=== PATIENT | female | born 2000 | race American Indian/Alaskan Native ===

== ENCOUNTER 2022-09-30 06:59 | Day surgery (SDC) | payer MEDICAID ==
[2022-09-30] MEDS ORDERED: Acetaminophen 500 MG Tab PO ONE (07:15)
[2022-09-30 07:41] LABS: ESTIMATED GFR 83 mL/min (>60)
[2022-09-30] MEDS ORDERED: Dextrose 5%-Lactated Ringers 1,000 ML IV SCH (08:00)
[2022-09-30] MEDS ORDERED: Levofloxacin/Dextrose 5%-Water 500 MG in Premix Bag 1 BAG IV ONE (08:30)
[2022-09-30] MEDS ORDERED: Indocyanine Green 25 MG SDV INJECT ONE (08:45)
[2022-09-30] MEDS ORDERED: Ketamine 16 MG in Sodium Chloride 0.9% 19.84 ML IV SCH (08:45)
[2022-09-30] MEDS ORDERED: Ketamine 500 MG/5 ML MDV IV SCH (08:45)
[2022-09-30] MEDS ORDERED: Ropivacaine 30 ML, dexAMETHasone 8 MG, EPINEPHrine 0.4 MG, Sodium Chloride 0.9% 47.6 ML NERVRT SCH ×4 (08:45)
[2022-09-30] MEDS ORDERED: Ondansetron 4 MG/2 ML SDV ONE (08:53)
[2022-09-30] MEDS ORDERED: Propofol 200 MG/20 ML SDV ONE (08:53)
[2022-09-30] MEDS ORDERED: fentaNYL 250 MCG/5 ML SDV ONE (08:53)
[2022-09-30] MEDS ORDERED: Rocuronium 50 MG/5 ML Vial ONE (08:53)
[2022-09-30] MEDS ORDERED: Neostigmine Methylsulfate 1 MG/ML 5 ML Syringe ONE (08:53)
[2022-09-30] MEDS ORDERED: Dexamethasone 4 MG/ML SDV ONE (08:53)
[2022-09-30] MEDS ORDERED: Succinylcholine 200 MG/10 ML MDV ONE (08:53)
[2022-09-30] MEDS ORDERED: Glycopyrrolate 0.2 MG/ML 5 ML MDV ONE (08:53)
[2022-09-30] MEDS ORDERED: fentaNYL 100 MCG/2 ML SDV ONE (09:55)
[2022-09-30] MEDS: Bupivacaine 0.5%/EPINEPHrine 1:200,000 50 ML MDV ONE ×2 (10:28→11:10)
[2022-09-30] MEDS: Lidocaine 1% 50 ML MDV ONE ×2 (10:29→11:10)
[2022-09-30] MEDS ORDERED: Ketorolac 30 MG/ML SDV ONE (11:08)
[2022-09-30] MEDS ORDERED: Lactated Ringers 1,000 ML ONE (11:12)
[2022-09-30] MEDS ORDERED: Ibuprofen 600 MG Tab PO PRN ×2 (13:38→23:00)
[2022-09-30] MEDS ORDERED: traMADol 50 MG Tab PO PRN (14:00)
== END 2022-09-30 14:47 | disposition home or self-care (01) ==
LOC: JP.SDS 06:59
PROVIDERS: ATTEND Surgery
DX: K80.10 Calculus of gallbladder with chronic cholecystitis without obstruction (principal); Z88.0 Allergy status to penicillin; Z79.899 Other long term (current) drug therapy
CPT/HCPCS: 36415; 47562; 80053; 81025; 83735; 84100; 85027; 88304; A9270; J0171; J0330; J1100; J1885; J1956; J2001; J2405; J2704; J2710; J2795; J3010; J3490; J7120; J7121